=== PATIENT | male | born 1950 | race Caucasian/White ===

== ENCOUNTER 2018-02-03 10:12 | Inpatient (IN) | payer SELFPAY ==
[~2018-02-03] VITALS: Ht 185.4 cm; Wt 81.5 kg
[2018-02-03 10:17] VITALS: BP 126/62; PULSE 77; RESP 18; TEMP 97.5; O2SAT 100
--- NOTE | 2018-02-03 11:37 | PD ---
HPI Chief Complaint: Skin Problem Time Seen by Provider: 11:00 Travel History International Travel<30 days: No Contact w/Intl Traveler<30days: No Traveled to known affect area: No History of Present Illness HPI 67-year-old male who states he has no significant medical history, but currently does not have a primary care provider, presents emergency department for evaluation of generalized weakness. Patient states about 3 months ago he was able to walk several miles. He was exercising every day. And he noticed he developed this petechial-like rash on his lower extremities. This persisted and over time he developed large plaque-like scabs on the lower extremities. Noticed this about a month ago. He states that the last month he has been having significant pain with ambulation in the bilateral lower extremities. He states he has been tired and weak. He denies any fever or chills. He denies any recent illnesses. He denies any chest pain or shortness of breath. He tells me he has had no difficulty urinating. He tells me that he has had no black tarry or anastasia red stools. He denies any injury. Patient has no other symptoms to report. [facility] Past Medical History Medical History: Denies Significant Hx Tetanus Vaccination: > 5 Years Influenza Vaccination: No Past Surgical History Surgical History: No Previous Surgery Social History Alcohol Use: No Tobacco Use: No Substance Use: No Allergies-Medications (Allergen,Severity, Reaction): Coded Allergies: No Known Allergies (Unverified , 02/03/18) Reported Meds & Prescriptions Reported Meds & Active Scripts Active No Active Prescriptions or Reported Medications Review of Systems Except as stated in HPI: all other systems reviewed are Neg Physical Exam Narrative GENERAL: Thin appearing elderly male patient, appears nontoxic and without distress. SKIN: Focused skin assessment warm/dry. Petechial rash on the bilateral lower extremities distal to the knee but proximal to the ankles. There are large black scab-like lesions on the lower extremities distal to the knees as well. Patient has ecchymosis that appears to be resolving on the knees. HEAD: Atraumatic. Normocephalic. EYES: Pupils equal and round. Slight scleral icterus. No injection or drainage. ENT: No nasal bleeding or discharge. Mucous membranes pink and moist. NECK: Trachea midline. No JVD. CARDIOVASCULAR: Regular rate and rhythm. 2/6 systolic murmur appreciated. RESPIRATORY: No accessory muscle use. Clear to auscultation. Breath sounds equal bilaterally. GASTROINTESTINAL: Abdomen soft, non-tender, nondistended. Hepatic and splenic margins not palpable. RECTAL EXAM: Large hard prostate. Stool is brown. MUSCULOSKELETAL: No obvious deformities. No clubbing. No cyanosis. No edema. Full flexion-extension of the bilateral lower extremities. Distal pulses are palpable. NEUROLOGICAL: Awake and alert. No obvious cranial nerve deficits. Motor grossly within normal limits. Normal speech. PSYCHIATRIC: Appropriate mood and affect; insight and judgment normal. Data Data Last Documented VS Vital Signs Date Time Temp Pulse Resp B/P (MAP) Pulse Ox O2 Delivery O2 Flow Rate FiO2 02/03/18 10:17 97.5 77 18 126/62 (83) 100 Orders Orders Iv Access Insert/Monitor (02/03/18 11:10) Complete Blood Count With Diff (02/03/18 11:10) Comprehensive Metabolic Panel (02/03/18 11:10) Coag Profile (02/03/18 11:10) Tibia/Fibula (Ap/Lat) (02/03/18 ) Tibia/Fibula (Ap/Lat) (02/03/18 ) Labs Laboratory Tests Test 02/03/18 11:49 White Blood Count 4.5 TH/MM3 Red Blood Count 2.69 MIL/MM3 Hemoglobin 7.7 GM/DL Hematocrit 23.0 % Mean Corpuscular Volume 85.4 FL Mean Corpuscular Hemoglobin 28.6 PG Mean Corpuscular Hemoglobin Concent 33.4 % Red Cell Distribution Width 14.6 % Platelet Count 235 TH/MM3 Mean Platelet Volume 9.1 FL Neutrophils (%) (Auto) 76.3 % Lymphocytes (%) (Auto) 11.4 % Monocytes (%) (Auto) 8.2 % Eosinophils (%) (Auto) 3.1 % Basophils (%) (Auto) 1.0 % Neutrophils # (Auto) 3.5 TH/MM3 Lymphocytes # (Auto) 0.5 TH/MM3 Monocytes # (Auto) 0.4 TH/MM3 Eosinophils # (Auto) 0.1 TH/MM3 Basophils # (Auto) 0.0 TH/MM3 CBC Comment DIFF FINAL Differential Comment Prothrombin Time 11.5 SEC Prothromb Time International Ratio 1.1 RATIO Activated Partial Thromboplast Time 24.5 SEC Blood Urea Nitrogen 13 MG/DL Creatinine 1.24 MG/DL Random Glucose 101 MG/DL Total Protein 7.3 GM/DL Albumin 3.2 GM/DL Calcium Level 9.1 MG/DL Alkaline Phosphatase 108 U/L Aspartate Amino Transf (AST/SGOT) 30 U/L Alanine Aminotransferase (ALT/SGPT) 20 U/L Total Bilirubin 2.1 MG/DL Sodium Level 135 MEQ/L Potassium Level 4.5 MEQ/L Chloride Level 102 MEQ/L Carbon Dioxide Level 24.0 MEQ/L Anion Gap 9 MEQ/L Estimat Glomerular Filtration Rate 58 ML/MIN [facility] Medical Decision Making Medical Screen Exam Complete: Yes Emergency Medical Condition: Yes Medical Record Reviewed: Yes Differential Diagnosis Anemia versus cellulitis versus contact dermatitis versus liver failure versus bone marrow suppression versus vitamin deficiency versus GI bleed upper versus lower Narrative Course 67-year-old male presents emergency department for evaluation. Patient has initial concern about a lower extremity rash. There is a petechial eruption in the bilateral lower extremities distal to the knees. There are large black scab appearing lesions over these areas. Laboratory Tests Test 02/03/18 11:49 White Blood Count 4.5 TH/MM3 Red Blood Count 2.69 MIL/MM3 Hemoglobin 7.7 GM/DL Hematocrit 23.0 % Mean Corpuscular Volume 85.4 FL Mean Corpuscular Hemoglobin 28.6 PG Mean Corpuscular Hemoglobin Concent 33.4 % Red Cell Distribution Width 14.6 % Platelet Count 235 TH/MM3 Mean Platelet Volume 9.1 FL Neutrophils (%) (Auto) 76.3 % Lymphocytes (%) (Auto) 11.4 % Monocytes (%) (Auto) 8.2 % Eosinophils (%) (Auto) 3.1 % Basophils (%) (Auto) 1.0 % Neutrophils # (Auto) 3.5 TH/MM3 Lymphocytes # (Auto) 0.5 TH/MM3 Monocytes # (Auto) 0.4 TH/MM3 Eosinophils # (Auto) 0.1 TH/MM3 Basophils # (Auto) 0.0 TH/MM3 CBC Comment DIFF FINAL Differential Comment Prothrombin Time 11.5 SEC Prothromb Time International Ratio 1.1 RATIO Activated Partial Thromboplast Time 24.5 SEC Blood Urea Nitrogen 13 MG/DL Creatinine 1.24 MG/DL Random Glucose 101 MG/DL Total Protein 7.3 GM/DL Albumin 3.2 GM/DL Calcium Level 9.1 MG/DL Alkaline Phosphatase 108 U/L Aspartate Amino Transf (AST/SGOT) 30 U/L Alanine Aminotransferase (ALT/SGPT) 20 U/L Total Bilirubin 2.1 MG/DL Sodium Level 135 MEQ/L Potassium Level 4.5 MEQ/L Chloride Level 102 MEQ/L Carbon Dioxide Level 24.0 MEQ/L Anion Gap 9 MEQ/L Estimat Glomerular Filtration Rate 58 ML/MIN Hemoccult is negative however patient's hemoglobin is 7.7. With general fatigue and increased weakness, and being Hemoccult stool positive I feel patient will benefit from observation admission, further evaluation as to why he is anemic and serial H&H. I discussed this with my attending physician and the patient who are in agreement with this plan of care. Diagnosis Primary Impression: Symptomatic anemia Additional Impression: Positive occult stool blood test Admitting Information Admitting Physician Requests: Observation Scripts No Active Prescriptions or Reported Meds Condition: Stable Jess Mccracken Feb 03, 2018 11:37
[2018-02-03 12:05] LABS: AUTOMATED NEUTROPHIL # 3.5 TH/MM3 (1.8-7.7); EOSINOPHIL # 0.1 TH/MM3 (0-0.4); EOSINOPHIL % 3.1 % (0.0-4.0); HEMOGLOBIN 7.7 GM/DL (13.0-17.0); LYMPH % 11.4 % (9.0-44.0); LYMPHOCYTE # 0.5 TH/MM3 (1.0-4.8); MEAN CELL VOLUME 85.4 FL (80.0-100.0); MEAN CORPUSCULAR HEMOGLOBIN 28.6 PG (27.0-34.0); MEAN CORPUSCULAR HGB CONC 33.4 % (32.0-36.0); MEAN PLATELET VOLUME 9.1 FL (7.0-11.0); MONO % 8.2 % (0.0-8.0); MONOCYTE # 0.4 TH/MM3 (0-0.9); NEUT % 76.3 % (16.0-70.0); PLATELET COUNT 235 TH/MM3 (150-450); RED BLOOD COUNT 2.69 MIL/MM3 (4.50-5.90); RED CELL DISTRIBUTION WIDTH 14.6 % (11.6-17.2); WHITE BLOOD COUNT 4.5 TH/MM3 (4.0-11.0)
--- NOTE | 2018-02-03 12:14 | RADRPT ---
EXAM DATE: 02/03/2018 11:50 AM EDT AGE/SEX: 67 years / Male INDICATIONS: Left leg pain with skin rash and sores from knee to ankle. Skin is also painful. CLINICAL DATA: This is the patient's initial encounter. Patient reports that signs and symptoms have been present for 1 month and indicates a pain score of 4/10. MEDICAL/SURGICAL HISTORY: None. None. COMPARISON: No prior exams available for comparison. FINDINGS: Bony structures are intact and in normal alignment. Osseous density is normal. Soft tissues are unre markable. No radiopaque foreign bodies seen. CONCLUSION: No acute bony abnormality. Electronically signed by: Jeffrey Johnson MD 02/03/2018 12:13 PM EDT
--- NOTE | 2018-02-03 12:14 | RADRPT ---
EXAM DATE: 02/03/2018 11:52 AM EDT AGE/SEX: 67 years / Male INDICATIONS: Right leg pain from knee to ankle with a rash and sores, and skin pain. CLINICAL DATA: This is the patient's initial encounter. Patient reports that signs and symptoms have been present for 1 month and indicates a pain score of 4/10. MEDICAL/SURGICAL HISTORY: None. None. COMPARISON: No prior exams available for comparison. FINDINGS: Bony structures are intact and in normal alignment. Osseous density is normal. Soft tissues are unre markable. No radiopaque foreign bodies seen. CONCLUSION: No acute bony abnormality. Electronically signed by: Jeffrey Johnson MD 02/03/2018 12:13 PM EDT
[2018-02-03 12:18] LABS: INTERNATIONAL NORMALIZED RATIO 1.1 RATIO; PROTHROMBIN TIME - PATIENT 11.5 SEC (9.8-11.6)
[2018-02-03 12:43] LABS: ALBUMIN 3.2 GM/DL (3.4-5.0); ALKALINE PHOSPHATASE 108 U/L (45-117); ALT (GPT) 20 U/L (12-78); AST (GOT) 30 U/L (15-37); BLOOD UREA NITROGEN 13 MG/DL (7-18); CALCIUM 9.1 MG/DL (8.5-10.1); CHLORIDE 102 MEQ/L (98-107); CREATININE 1.24 MG/DL (0.60-1.30); GLOMERULAR FILTRATION RATE 58 ML/MIN (>89); GLUCOSE,RANDOM 101 MG/DL (74-106); SODIUM (NA) 135 MEQ/L (136-145); TOTAL BILIRUBIN ADULT 2.1 MG/DL (0.2-1.0); TOTAL PROTEIN 7.3 GM/DL (6.4-8.2)
[2018-02-03 13:33] VITALS: BP 128/86
[2018-02-03] MEDS ORDERED: ACETAMINOPHEN 325 MG TAB PO PRN ×3 (13:45→14:30)
[2018-02-03] MEDS ORDERED: ONDANSETRON ODT 4 MG TAB PO PRN (13:45)
[2018-02-03] MEDS ORDERED: NALOXONE HCL 0.4 MG/ML AMP IV PUSH PRN (13:45)
[2018-02-03] MEDS ORDERED: SODIUM CHLORIDE 0.9% FLUSH 10 ML FLUSH IV FLUSH PRN (13:45)
[2018-02-03] MEDS ORDERED: MAGNESIUM HYDROXIDE SUSP 30 ML CUP PO PRN (13:45)
--- NOTE | 2018-02-03 14:28 | HHI.HP ---
HPI Service [facility] Primary Care Physician No Primary Care Physician Admission Diagnosis SYMPTOMATIC ANEMIA; +HEMOCCULT STOOL; BLE PETICHEAL RASH Diagnoses: (1) Rash, skin (2) Symptomatic anemia (3) Positive occult stool blood test Chief Complaint: Skin rash and left knee pain Travel History International Travel<30 Days: No Contact w/Intl Traveler <30 Da: No Traveled to Known Affected Are: No History of Present Illness 67-year-old man with no significant past medical history presented to the ED for evaluation of left knee pain, bilateral lower extremity skin rash associated with scabbing. Patient also reported that over the past 3 months he has been feeling more fatigued and tired. Patient also noticed petechial-like rash on his lower extremities which eventually developed some large scabs after scratching all over it, and states he may have walking to [place] over the past 3 weeks. Patient denies any GI bleed however a fecal occult blood test in the ED was positive. He was found to have low H&H. He denies any shortness of breath or chest pain. He is not currently on any medication. Review of Systems Except as stated in HPI: all other systems reviewed are Neg Past Family Social History Past Medical History No significant past medical history Past Surgical History No Previous Surgery Reported Medications Not currently on any medication Allergies: Coded Allergies: No Known Allergies (Unverified , 02/03/18) Family History Father from complication of emphysema Social History Alcohol Use: No Tobacco Use: No Substance Use: No Physical Exam Vital Signs Vital Signs Date Time Temp Pulse Resp B/P (MAP) Pulse Ox O2 Delivery O2 Flow Rate FiO2 02/03/18 10:17 97.5 77 18 126/62 (83) 100 Physical Exam GENERAL: This is a well-nourished, well-developed patient, in no apparent distress. SKIN: Petechial rash on the bilateral lower extremities distal to the knee but proximal to the ankles. There are large black scab-like lesions on the lower extremities distal to the knees as well. Patient has ecchymosis that appears to be resolving on the knees. HEAD: Atraumatic. Normocephalic. No temporal or scalp tenderness. EYES: Pupils equal round and reactive. Extraocular motions intact. No scleral icterus. No injection or drainage. ENT: Nose without bleeding, purulent drainage or septal hematoma. Throat without erythema, tonsillar hypertrophy or exudate. Uvula midline. Airway patent. NECK: Trachea midline. No JVD or lymphadenopathy. Supple, nontender, no meningeal signs. CARDIOVASCULAR: Regular rate and rhythm without murmurs, gallops, or rubs. RESPIRATORY: Clear to auscultation. Breath sounds equal bilaterally. No wheezes , rales, or rhonchi. GASTROINTESTINAL: Abdomen soft, non-tender, nondistended. No hepato-splenomegaly , or palpable masses. No guarding. MUSCULOSKELETAL: Extremities without clubbing, cyanosis, or edema. No joint tenderness, effusion, or edema noted. No calf tenderness. Negative Homans sign bilaterally. NEUROLOGICAL: Awake and alert. Cranial nerves II through XII intact. Motor and sensory grossly within normal limits. Five out of 5 muscle strength in all muscle groups. Normal speech. Laboratory Laboratory Tests Test 02/03/18 11:49 White Blood Count 4.5 Red Blood Count 2.69 Hemoglobin 7.7 Hematocrit 23.0 Mean Corpuscular Volume 85.4 Mean Corpuscular Hemoglobin 28.6 Mean Corpuscular Hemoglobin Concent 33.4 Red Cell Distribution Width 14.6 Platelet Count 235 Mean Platelet Volume 9.1 Neutrophils (%) (Auto) 76.3 Lymphocytes (%) (Auto) 11.4 Monocytes (%) (Auto) 8.2 Eosinophils (%) (Auto) 3.1 Basophils (%) (Auto) 1.0 Neutrophils # (Auto) 3.5 Lymphocytes # (Auto) 0.5 Monocytes # (Auto) 0.4 Eosinophils # (Auto) 0.1 Basophils # (Auto) 0.0 CBC Comment DIFF FINAL Differential Comment Prothrombin Time 11.5 Prothromb Time International Ratio 1.1 Activated Partial Thromboplast Time 24.5 Blood Urea Nitrogen 13 Creatinine 1.24 Random Glucose 101 Total Protein 7.3 Albumin 3.2 Calcium Level 9.1 Alkaline Phosphatase 108 Aspartate Amino Transf (AST/SGOT) 30 Alanine Aminotransferase (ALT/SGPT) 20 Total Bilirubin 2.1 Sodium Level 135 Potassium Level 4.5 Chloride Level 102 Carbon Dioxide Level 24.0 Anion Gap 9 Estimat Glomerular Filtration Rate 58 Result Diagram: 02/03/18 1149 02/03/18 1149 Imaging Last Impressions Tibia/Fibula X-Ray 02/03/18 0000 Signed Impressions: CONCLUSION: No acute bony abnormality. Septic Shock Reassessment Septic shock perfusion: reassessment completed Caprini VTE Risk Assessment Caprini VTE Risk Assessment: Mod/High Risk (score >= 2) Caprini Risk Assessment Model Point Value = 1 Point Value = 2 Point Value = 3 Point Value = 5 Age 41-60 Minor surgery BMI > 25 kg/m2 Swollen legs Varicose veins or History of unexplained or recurrent spontaneous Oral contraceptives or hormone replacement Sepsis (< 1 month) Serious lung disease, including pneumonia (< 1 month) Abnormal pulmonary function Acute myocardial infarction Congestive heart failure (< 1 month) History of inflammatory bowel disease Medical patient at bed rest Age 61-74 Arthroscopic surgery Major open surgery (> 45 min) Laparoscopic surgery (> 45 min) Malignancy Confined to bed (> 72 hours) Immobilizing plaster cast Central venous access Age >= 75 History of VTE Family history of VTE Factor V Leiden Prothrombin [id number] Lupus anticoagulant Anticardiolipin antibodies Elevated serum homocysteine Heparin-induced thrombocytopenia Other congenital or acquired thrombophilia Stroke (< 1 month) Elective arthroplasty Hip, pelvis, or leg fracture Acute spinal cord injury (< 1 month) Prophylaxis Regimen Total Risk Factor Score Risk Level Prophylaxis Regimen 0-1 Low Early ambulation 2 Moderate Order ONE of the following: *Sequential Compression Device (SCD) *Heparin 5000 units SQ BID 3-4 Higher Order ONE of the following medications: *Heparin 5000 units SQ TID *Enoxaparin/Lovenox 40 mg SQ daily (WT < 150 kg, CrCl > 30 mL/min) *Enoxaparin/Lovenox 30 mg SQ daily (WT < 150 kg, CrCl > 10-29 mL/min) *Enoxaparin/Lovenox 30 mg SQ BID (WT < 150 kg, CrCl > 30 mL/min) AND/OR *Sequential Compression Device (SCD) 5 or more Highest Order ONE of the following medications: *Heparin 5000 units SQ TID (Preferred with Epidurals) *Enoxaparin/Lovenox 40 mg SQ daily (WT < 150 kg, CrCl > 30 mL/min) *Enoxaparin/Lovenox 30 mg SQ daily (WT < 150 kg, CrCl > 10-29 mL/min) *Enoxaparin/Lovenox 30 mg SQ BID (WT < 150 kg, CrCl > 30 mL/min) AND *Sequential Compression Device (SCD) Assessment and Plan Problem List: (1) Symptomatic anemia ICD Code: D64.9 - Anemia, unspecified Status: Acute (2) Positive occult stool blood test ICD Code: R19.5 - Other fecal abnormalities Status: Acute Assessment and Plan 67 yrs old man Symptomatic Anemia Positive occult stool blood test Transfuse 2units PRBC and monitor serial Check Iron/TIBC Consult GI for evaluation for possible Panendoscopy Left leg pain Tibia/Fibula x ray noted and review by me without any acute bony abnormality Skin rash Infectious vs Vasculitis vs other start Medrol pack Code Status Full code Discussed Condition With ED RETAIL PRESENTATION SPECIALIST, patient Jeffrey Dove MD Feb 03, 2018 14:28
[2018-02-03] MEDS ORDERED: FUROSEMIDE 20 MG/2 ML VIAL IV PUSH ONE (14:30)
[2018-02-03] MEDS ORDERED: SODIUM CHLOR 0.9% 250 ML INJ 250 ML IV ONE (14:30)
[2018-02-03] MEDS ORDERED: diphenhydrAMINE HCL 25 MG CAP PO PRN (14:30)
--- NOTE | 2018-02-03 15:35 | HHI.PR ---
Addendum to Inpatient Note Addendum Reason: Additional Documentation Additional Information Patient Chente Tran has decided to leave the hospital against medical advice. This patient has the capacity to refuse care and understands the risks of leaving, including permanent disability and/or , and has had an opportunity to ask questions about his condition. The patient has been informed that he may return for care at any time, and follow up has been arranged/advised. Jeffrey Dove MD Feb 03, 2018 15:35
[2018-02-03 20:37] LABS: % SATURATION IRON PROFILE 21.2 % (20-50); IRON (FE) 59 MCG/DL (65-175); TOTAL IRON BINDING CAPACITY 279 MCG/DL (250-450)
[2018-02-03] MEDS ORDERED: SODIUM CHLORIDE 0.9% FLUSH 10 ML FLUSH IV FLUSH SCH (21:00)
== END 2018-02-03 15:25 | disposition left against medical advice (07) | DRG 812 ==
LOC: NEPC 10:12 → NEDA 13:18 → OBSVTOIN 14:30
PROVIDERS: ADMIT Hospitalist; ATTEND Hospitalist
DX: D64.9 Anemia, unspecified (principal); K92.1 Melena; R23.3 Spontaneous ecchymoses; R21 Rash and other nonspecific skin eruption; M79.605 Pain in left leg
CPT/HCPCS: 73590; 80053; 83540; 83550; 85025; 85610; 85730